=== PATIENT | female | born 1990 | race Caucasian/White ===

== ENCOUNTER 2017-12-16 14:19 | Emergency (ER) | payer MEDICAID, SELFPAY ==
[2017-12-16 14:20] VITALS: BP 146/95; PULSE 94; RESP 16; TEMP 35.9; O2SAT 100; BMI 36.0
--- NOTE | 2017-12-16 14:32 | CT_ITS ---
STUDY: CT ABDOMEN AND PELVIS WITHOUT CONTRAST REASON FOR EXAM: Female, 26 years old. Right flank pain. History of kidney stones. RADIATION DOSAGE (If Supplied By Facility): CTDIvol = ( 14.56 ) mGy, DLP = ( 691.06 ) mGycm TECHNIQUE: Transaxial images were obtained from the dome of the diaphragm to the symphysis pubis without oral contrast, and without intravenous contrast. Sagittal and coronal images were reconstructed. Individualized dose optimization techniques were used for this CT. COMPARISON: None. FINDINGS: Mild increased markings at the lung bases suggestive of mild bibasilar atelectasis and/or early infiltrates. The visualized portions of the heart are within normal limits. Normal liver. The gallbladder is contracted. Normal spleen. Normal pancreas. Normal bilateral adrenal glands. Normal right kidney. Normal left kidney. Normal visualized stomach. Normal small intestine. Normal colon. The appendix is visualized and appears normal. Normal abdominal aorta. Normal inferior vena cava. Normal retroperitoneum. Normal urinary bladder. There is absence of the uterus consistent with a prior hysterectomy. There is a small umbilical hernia containing fat. Normal osseous structures. CT/Abdomen/Pelvis without Cont IMPRESSION: Normal unenhanced CT of the abdomen and pelvis. Electronically Signed: Frederick Prieto MD at 15:36 EST Tel [phone], Service support ,
[2017-12-16] MEDS: 0.9% Normal Saline 1,000 ML 250 ML IV (15:02)
[2017-12-16] MEDS: Ondansetron 4 MG/2 ML Vial IV (15:02)
[2017-12-16] MEDS: Ketorolac 30 MG/ML Syringe IV (15:02)
[2017-12-16 15:03] LABS: Mucous, Urine 0 SEEN /hpf (<or=2+)
[2017-12-16 15:06] LABS: Color, Urine Yellow (Yellow); Glucose, Dipstick Normal (Normal); Ketone-Dipstick Negative (Negative); Leukocyte Esterase-Dipstick 25 /ul (Negative); Nitrite-Dipstick Negative (Negative); Occult Blood-Urine 10 /ul (Negative); Protein-Dipstick Negative (Negative); Specific Gravity, Urine 1.015 (1.002-1.030); Urine Bilirubin Dipstick Negative (Negative); Urine Clarity Clear (Clear); Urine Urobilinogen Normal (Normal); Urine pH 6.5 (5.0 - 8.0)
[2017-12-16 15:12] LABS: Bacteria 2+ /hpf (None Seen); Red Blood Cells-Urine 0-5 SEEN /hpf (0-5); Squamous Epithelial Cells - UA 10-25 SEEN /hpf (5-10); White Blood Cells 0-5 SEEN /hpf (0-5)
--- NOTE | 2017-12-16 15:46 | ED.DCSUM_ITS ---
- ER Visit Summary Date of Service: 12/16/17 Chief Complaint: Right flank pain History of Present Illness: The patient is a 26 F with no primary care physician. She reports she has right flank pain pain that began yesterday. It is intermittent sharp pain is 9 out of 10 at worst and 710 currently. Is worsened by walking and relieved by nothing. She denies any associated nausea, vomiting, or diarrhea. Her last bowel was yesterday. She has had no melena or hematochezia. She denies any dysuria or frequency. States is similar to when she has had kidney stones in the past. Physical Examination: Vitals: Stable. Afebrile. General: Well-nourished and well-developed. Head: Normocephalic atraumatic. Neck: Supple, no lymphadenopathy. No JVD. Nontender. Cardiovascular: Regular rate and rhythm. No murmurs. Respiratory: No respiratory distress. Clear to auscultation bilaterally. Abdominal: Soft, nontender, nondistended, normal bowel sounds. No guarding, rebound, or peritoneal signs. Back: Nontender. Extremities: Nontender, no edema. Skin: Normal color, no rash. Neurologic: Alert and oriented ?3. Cranial nerves II through XII are intact. Normal strength and sensation. Psych: Normal affect. Test Results: UA is negative. CT flank is normal. Emergency Department Course and Treatment: Patient was treated with Toradol and Zofran IV. She is resting comfortably. Treatment Plan: Patient will be discharged naproxen for pain. Instructed to follow-up the [facility] in 1 week if not improving. Disposition: To home in improved and stable condition. Impression: 1. Flank pain, uncertain cause. This note was generated with [employer] dictation software. It may contain incorrect words, spelling, and punctuation that were not noted in review of the chart prior to signing ED Disposition - Plan for ED Patient: Chief Complaint: Flank Pain Instructions: ED Flank Pain Uncertain Cause Prescriptions: Naproxen [Naprosyn] 500 mg PO BID PRN #20 tablet Referrals: [facility] [NON-STAFF] - 1 Week if not improving
[2017-12-16 16:05] VITALS: BP 108/66; PULSE 72; RESP 16; O2SAT 99
== END 2017-12-16 16:06 | disposition home or self-care (01) ==
PROVIDERS: Emergency Provider Emergency Medicine
DX: R10.9 Unspecified abdominal pain (principal); Z72.0 Tobacco use; Z87.442 Personal history of urinary calculi; Z90.710 Acquired absence of both cervix and uterus
CPT/HCPCS: 74176; 81001; 96361; 96374; 96375; 99283; J7050; J2405